=== PATIENT | female | born 1970 | race African-American/Black ===

== ENCOUNTER 2017-04-11 18:06 | Emergency (ER) | payer OTHER ==
[~2017-04-11] VITALS: Ht 167.6 cm; Wt 97.5 kg
[2017-04-11] MEDS ORDERED: Tylenol #3 tab (300mg/30mg) ONE (19:06)
[2017-04-11] MEDS ORDERED: Tylenol #3 tab (300mg/30mg) ORAL ONE (19:30)
[2017-04-11] MEDS ORDERED: TYLENOL EXTRA500 MG ORAL (19:57)
[2017-04-11] MEDS ORDERED: ATENOLOL25 MG ORAL (19:57)
[2017-04-11] MEDS ORDERED: HYDROCHLOROTH12.5 M2 ORAL (19:57)
[2017-04-11 20:09] VITALS: BP 173/98
--- NOTE | 2017-04-12 15:10 | Diagnostic Imaging Report ---
Indications: Cephalgia Technique: Continuous helical CT imaging of the brain was performed with automatic exposure control on a Siemens sensation [address] scanner. Axial and coronal images were reconstructed at 5 mm slice thickness and interval. CTDI volume(s): 70 mGy Total DLP: 1361 mGy-cm Findings: Comparison: None. Intracranial anatomy is unremarkable. No evidence of mass or hemorrhage, other attenuation abnormality, mass effect, midline shift, hydrocephalus or increased intracranial pressure. Bone window images are unremarkable. Visualized paranasal sinuses and mastoid air cells are clear. IMPRESSION: Negative noncontrast CT scan of the brain . The CT scanner at [facility] is accredited by the [employer] and the scans are performed using protocols designed to limit radiation exposure to as low as reasonably achievable to attain images of sufficient resolution adequate for diagnostic evaluation.
--- NOTE | 2017-04-12 15:36 | Emergency Room Report ---
History of Present Illness General Chief Complaint: Hypertension Source: Patient Present Illness HPI 47-year-old female presents to ED for evaluation. Patient states last 2 days she's had a headache. Frontal, 6/10, sharp, nonradiating. Denies any photophobia, blurry vision. Denies nausea or vomiting. Denies neck stiffness. In triage blood pressure is high. Patient has history of hypertension but states she ran out of her medications 6 months ago. Used to take atenolol and hydrochlorothiazide. Denies chest pain or shortness of breath. No other aggravating or leading factors. Denies any other associated symptoms Allergies: Coded Allergies: No Known Allergies (Unverified , 04/11/17) Patient History Past Medical History: HTN Past Surgical History: none Pertinent Family History: none Social History: Denies: alcohol use, drug use, smoking Last Menstrual Period: 04/04/17 Now: No Immunizations: UTD Reviewed Nursing Documentation: PMH: Agreed, PSxH: Agreed Nursing Documentation-PMH Hx Hypertension: Yes Review of Systems All Other Systems: negative except mentioned in HPI Physical Exam Vital Signs Date Time Temp Pulse Resp B/P Pulse Ox O2 Delivery O2 Flow Rate FiO2 04/11/17 18:21 98.4 66 15 171/112 98 Room Air Sp02 EP Interpretation: reviewed, normal General Appearance: no apparent distress, alert, GCS 15, non-toxic Head: normocephalic, atraumatic Eyes: bilateral eye PERRL, bilateral eye normal inspection ENT: hearing grossly normal, normal pharynx, no angioedema, normal voice Neck: full range of motion, supple, no meningismus, supple/symm/no masses Respiratory: chest non-tender, lungs clear, normal breath sounds, speaking full sentences Cardiovascular #1: regular rate, rhythm, no edema Cardiovascular #2: 2+ carotid (R), 2+ carotid (L), 2+ radial (R), 2+ radial (L) , 2+ dorsalis pedis (R), 2+ dorsalis pedis (L) Gastrointestinal: normal bowel sounds, non tender, soft, non-distended, no guarding, no rebound Rectal: deferred Genitourinary: normal inspection, no CVA tenderness Musculoskeletal: back normal, gait/station normal, normal range of motion, non- tender Neurologic: alert, oriented x3, responsive, motor strength/tone normal, sensory intact, speech normal Psychiatric: judgement/insight normal, memory normal, mood/affect normal, no suicidal/homicidal ideation Reflexes: 3+ bicep (R), 3+ bicep (L), 3+ tricep (R), 3+ tricep (L), 3+ knee (R) , 3+ knee (L) Skin: normal color, no rash, warm/dry, well hydrated Lymphatic: no adenopathy Medical Decision Making Diagnostic Impression: Primary Impression: Hypertension Qualified Codes: I10 - Essential (primary) hypertension Additional Impression: Headache Qualified Codes: R51 - Headache ER Course Hospital Course 47-year-old female presents ED complaining of elevated BP, c/o headache Differential diagnoses include: hypertensive urgency, hypertensive emergency, CVA Clinical course Patient placed on stretcher. After initial history and physical I ordered pain meds, CT Head CT head unremarkable On reassessment headache is improve. We will provide refills of her blood pressure medication I. I feel this is a highly complex case requiring extensive working including EKG/Rhythm strip, Xray/CT/US, Blood/urine lab work, repeat exams while in ED, and administration of strong opiates/narcotics for pain control, admission to hospital or close patient follow up. Diagnosis - hypertension, headache Stable and discharged to home prescription for atenolol, hydrochlorothiazide. Instructed to followup with PMD. Return to ED if symptoms recur or worsen CT/MRI/US Diagnostic Results CT/MRI/US Diagnostic Results : Imaging Test Ordered: CT head Impression no acute process Last Vital Signs Date Time Temp Pulse Resp B/P Pulse Ox O2 Delivery O2 Flow Rate FiO2 04/11/17 20:09 62 16 173/98 98 Room Air 04/11/17 20:09 98.0 Status: improved Disposition: HOME, SELF-CARE Condition: Stable Scripts Hydrochlorothiazide* (HYDROCHLOROTHIAZIDE*) 12.5 Mg Capsule 12.5 MG ORAL DAILY, #30 CAP Prov: NAVID STEWART M.D. 04/11/17 Atenolol* (TENORMIN*) 25 Mg Tablet 25 MG ORAL DAILY, #30 TAB Prov: NAVID STEWART M.D. 04/11/17 Acetaminophen* (TYLENOL EXTRA STRENGTH*) 500 Mg Tablet 500 MG ORAL Q6H Y for Mild Pain/Temp > 100.5, #30 TAB 0 Refills Prov: NAVID STEWART M.D. 04/11/17 Referrals: IZABELLA ORO,REFERRING (PCP) Patient Instructions: Hypertension, [id number] NAVID STEWART M.D. Apr 12, 2017 15:36
== END 2017-04-11 20:15 | disposition home or self-care (01) ==
LOC: EMR 19:21
DX: R51 Headache (principal); I10 Essential (primary) hypertension
CPT/HCPCS: 70450; 99284